=== PATIENT | male | born 1995 | race African-American/Black ===

== ENCOUNTER 2021-03-18 09:16 | Emergency (ER) | payer SELFPAY ==
[~2021-03-18] VITALS: Ht 182.9 cm; Wt 79.4 kg
--- NOTE | 2021-03-18 09:16 | NUR ---
BIBS C/O HEADACHE X3DAYS. PT TOOK TYLENOL AND EXCEDRIN AND STATED THERE WAS NO RELIEF. SOMETIMES FEELS NAUSEOUS DENIES VOMITTING. VITAL SIGNS ARE WITHIN NORMAL LIMITS. BREATHING IS REGULAR AND UNLABORED. PT SENT TO BED 1 AWAITING MD EISENBERG.
--- NOTE | 2021-03-18 09:37 | NUR ---
DR MANUEL AT BEDSIDE
[2021-03-18] MEDS ORDERED: diphenhydrAMINE HCL 50 MG/ML VIAL ONE (09:50)
[2021-03-18] MEDS ORDERED: PROCHLORPERAZINE EDISYLATE 10 MG/2 ML VIAL ONE (09:51)
[2021-03-18] MEDS ORDERED: KETOROLAC TROMETHAMINE 15 MG/ML VIAL ONE (09:51)
--- NOTE | 2021-03-18 09:51 | NUR ---
PT TAKEN TO CT
[2021-03-18] MEDS ORDERED: PROCHLORPERAZINE EDISYLATE 10 MG/2 ML VIAL IVP ONE (10:00)
[2021-03-18] MEDS ORDERED: diphenhydrAMINE HCL 50 MG/ML VIAL IV ONE (10:00)
[2021-03-18] MEDS ORDERED: KETOROLAC TROMETHAMINE INJ 30 MG/ML VIAL IV ONE (10:00)
[2021-03-18] MEDS ORDERED: IV NS 0.9% 1,000 ML BAG IV ONE (10:00)
[2021-03-18] MEDS ORDERED: IBUP-1957 PO (11:02)
[2021-03-18] MEDS ORDERED: KETOROLAC TROMETHAMINE INJ 30 MG/ML VIAL ONE (11:05)
[2021-03-18 11:14] VITALS: BP 122/83
--- NOTE | 2021-03-18 11:14 | NUR ---
Patient discharged to home in stable condition. Written and verbal after care instructions given. Patient verbalizes understanding of instruction.
[2021-03-18] MEDS ORDERED: KETOROLAC TROMETHAMINE INJ 60 MG/2 ML VIAL IM ONE (11:30)
== END 2021-03-18 11:14 | disposition home or self-care (01) ==
LOC: ER 09:19
DX: R51.9 Headache, unspecified (principal)
CPT/HCPCS: 70450; 99284; J0780; J1200; J1885 ×2; J7030